=== PATIENT | male | born 1980 | race Caucasian/White ===

== ENCOUNTER 2016-11-29 00:52 | Observation (INO) | payer BC ==
[~2016-11-29] VITALS: Ht 182.9 cm; Wt 122.0 kg
--- NOTE | ~2016-11-29 | OR ---
PATIENT'S NAME: APRIL BENAVIDEZ [facility] AGE: 36 Y [address] ROOM: [address] [address] [place] [facility] [place]: 11[place]29/2016 OR/Procedure Report DISCHARGE DATE: FAMILY PHYSICIAN: PHYSICIAN, UNKNOWN ATTENDING PHYSICIAN: Gabby Robledo SURGEON: Gabby Robledo MD DISTRIBUTION SUPERINTENDENT: DATE OF PROCEDURE: 11/29/2016 PREOPERATIVE DIAGNOSIS: Acute appendicitis. POSTOPERATIVE DIAGNOSIS: Acute appendicitis. PROCEDURE PERFORMED: Laparoscopic appendectomy. ANESTHESIA: General. 14 mL 0.5% Marcaine. SPECIMENS: Appendix with proximal dilatation. ESTIMATED BLOOD LOSS: Minimum. INDICATIONS: The patient is a 36-year-old gentleman with about 40-hour history of abdominal pain, settled in the right lower quadrant suprapubic location. He is found to have a normal white count. He had focal peritoneal findings on exam, and a CAT scan showed dilated appendix with inflammatory changes. It was consistent with appendicitis. DESCRIPTION OF PROCEDURE: After informed consent, the patient was taken to the operating room, and after general endotracheal anesthesia, the patient's abdomen was prepped and draped into a sterile field. A time-out was performed. We identified the patient and planned procedure and the administration of preop antibiotics. The local anesthetic was infiltrated prior to each incision. The first one was made below the umbilicus, carried down to identify the anterior fascia through which a Veress needle was inserted. Pneumoperitoneum created. A 5-mm trocar and laparoscope were inserted. Safe entry was noted. A right upper quadrant 5 mm and a suprapubic 12-mm ports were placed. There was some suppurative exudative process in the right lower quadrant between loops of small bowel and the anterior abdominal wall. They were easily . There was minimal amount of edematous fluid and a lot of the adipose tissue of the ileocecal valve region was not inflamed, and we identified the cecum, identified the anterior tenia, and traced it down to an inflamed retrocecal appendix. We out the small bowel. Again, the fatty tissue was very edematous, but it was not really creeping like inflammatory bowel disease. The small bowel and terminal ilium were soft. We elevated up the appendix and divided the mesial appendix with PATIENT'S NAME: APRIL BENAVIDEZ [facility] AGE: 36 Y [address] ROOM: [address] [place] [address] LOCATION: [facility] [place]: 11/29/2016 OR/Procedure Report DISCHARGE DATE: FAMILY PHYSICIAN: PHYSICIAN, UNKNOWN ATTENDING PHYSICIAN: Gabby Robledo the Endo-THIERRY clip x2. Divided the appendiceal stump at the cecal base with Endo-THIERRY device. The distal appendix was found, looked like fibrotic but only in the proximal one-third looked like almost a little ischemic and dilated. It was placed into an EndoCatch bag and brought out through the 12-mm incision. We irrigated the right lower quadrant until clear. There were no bleeding points. The staple line and the cecum appeared intact. The small bowel again was inspected and no definite changes of Crohn disease. The sigmoid colon across the lower and upper pelvis appeared soft and pliable and normal. We irrigated until clear with 2 L of irrigation fluid. We then terminated the procedure, removed the trocars, and repaired the fascia defect at the 12-mm site with 0 Vicryl and the skin closed with subcuticular 4-0 Vicryl. Steri-Strips and sterile dressings applied. The patient tolerated the procedure well and transferred to the recovery room in stable condition. GABBY ROBLEDO MD WTS/modl /[id number] d: 11/29/16 1345 t: 12/14/16 0903, OPERATIVE SUMMARY
--- NOTE | ~2016-11-29 | HP ---
PATIENT'S NAME: APRIL BENAVIDEZ [facility] AGE: 36 Y [address] ROOM: [id number] [place], [place] [address] [place] [facility] [place]: 11[place]29/[place] History & Physical DISCHARGE DATE: FAMILY PHYSICIAN: PHYSICIAN, UNKNOWN ATTENDING PHYSICIAN: Vaughn Robledo DATE OF SERVICE: CHIEF COMPLAINT: Abdominal pain. REVIEW OF RECORD: April is a pleasant 36-year-old gentleman kindly referred by the [facility] [place] for surgical evaluation and treatment of the diagnosed acute appendicitis. The patient says, Saturday evening about 10:00 p.m., he started having some abdominal pain in the epigastrium. He tried to push through it on Saturday at work but the pain was up to the 6-7 range. He presented to the [facility] and saw Dr. Thomson where he was suspected of having some constipation issues based on plain films per patient report. He went home, tried magnesium citrate and it was to no avail. Last evening, he went to the emergency room at [place] where they evaluated him. He was found to have a lot of abdominal pain mostly in the lower abdomen, right greater than left quadrant. White count was normal but despite that, they appropriately ordered a CT scan for ongoing investigation. The patient's CT scan showed evidence of acute appendicitis. 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 On admission, he had a fever up to 102.5. He felt dry. He said he had lower abdominal pain, still at the range of 7/10 scale. He has had no really nausea or vomiting. He had several small bowel movements after his magnesium citrate but not a normal bowel movement. He has not had any dysuria, no cough. He has had no abdominal trauma. No previous abdominal operations. He has not had any preceding symptoms of chronic diarrhea to suggest inflammatory bowel disease. MEDICATIONS: Eyedrops for recent eye infection. ALLERGIES: AMOXICILLIN A CHILD WITH A RASH SYMPTOM. OPERATIONS: Lumbar discectomy for a bulging disc without fusion. PATIENT'S NAME: APRIL BENAVIDEZ [facility] AGE: 36 Y [address] ROOM: [address] [address] [place] [facility] [place]: 11/29/2016 History & Physical DISCHARGE DATE: FAMILY PHYSICIAN: PHYSICIAN, UNKNOWN ATTENDING PHYSICIAN: Vaughn Robledo SOCIAL HISTORY: Works in the [employer]. Does not smoke or drink. He is , has 3 children. FAMILY HISTORY: Mother had ovarian cancer. REVIEW OF SYSTEMS: He denies any change in his weight. He reports the recent eye infection. Reports having dry lips and is thirsty. Denies any thyroid or diabetic conditions. No history of pulmonary or cardiac abnormality. Denies any swollen joints. He has chronic lower back pain. PHYSICAL EXAMINATION: GENERAL: He was afebrile, 36-year-old gentleman, alert and cooperative to exam. HEENT: Head is normocephalic. Sclerae are nonicteric. There is no matting of the eyes. His mucous membranes are dry. NECK: Supple. There is no adenopathy or thyromegaly to palpation. LUNGS: Clear bilaterally. HEART: Normal sinus rhythm. ABDOMEN: Has normoactive bowel sounds. He does not appear to be distended. He is extremely tender across the lower abdomen with focal peritoneal findings in the right lower quadrant with guarding. EXTREMITIES: He has 2/2 femoral and posterior tibial, dorsalis pedis, and popliteal pulses without peripheral edema. His back is nontender to palpation. IMPRESSION: Acute appendicitis possible rupture. I discussed options of observation versus laparoscopic appendectomy. I explained the procedure, benefits, and risks including, but not limited to abdominal wall hernias, hollow viscous injury, postop abscess, wound infection, cardiac or pulmonary decompensation, and loss of life. I answered the patient and his 's questions, and they agreed to proceed. Thank you very much for allowing me to participate in his care. VAUGHN ROBLEDO MD WTS/modl PATIENT'S NAME: APRIL BENAVIDEZ [facility] AGE: 36 Y [address] ROOM: [address] [address] [place] [facility] [place]: 11/29/2016 History & Physical DISCHARGE DATE: FAMILY PHYSICIAN: GASPER LÓPEZ ATTENDING PHYSICIAN: Vaughn Robledo /[id number] D: 747 T: 901 HISTORY & PHYSICAL
[2016-11-29] MEDS ORDERED: TOBRADEX5 ML IO (02:52)
[2016-11-29] MEDS ORDERED: MULTI-VITAMIN1 EAC1 PO (02:53)
--- NOTE | 2016-11-29 05:56 | NUR ---
Pt admitted around 0240 from [facility] for acute appendicitis. Pt states he started having abdominal pain 2 days ago. Pain kept him up throughout the night. Tried to go to work yesterday but pain was too intense. Went to [facility]. Pt states he got some mag citrate which didn't produce any results. Went home and slept some. Pain kept getting intense so he went to the ER. Ct scan completed in [place] shows appendicitis. Pt takes a multivitamin and some antibiotic eye drops for his right eye infection. Pt only surgery was a back surgery years ago. Pt states no nausea but some belching.
--- NOTE | 2016-11-29 06:02 | NUR ---
Significant Event: Pt alert and oriented. Rested throught remainder of the night. Pt states pain is tolerable. Did receive 3 doses of morphine in [place]. IV fluids going. NPO. Pt max temp was 102.7. Md notified of temp, tylenol given and invanz given. PT has sleep apena and wear CPAP at home. Takes eye drops for recent right ear infection. at bedside. Plan for OR this morning. Follow up:
[2016-11-29] MEDS ORDERED: CPAP INH (06:05)
--- NOTE | 2016-11-29 10:17 | NUR ---
PATIENT RETURNS FROM BATHROOM. REPORTS IV IN LEFT ARM REALLY HURTS. IV ASSESSED, INFILTRATED.
--- NOTE | 2016-11-29 15:45 | NUR ---
Reviewed patient's chart and got an update in morning huddle stating patient was down for surgery. They believed the plan for patient is to discharge to home either this evening or tomorrow depending on if the appendics had ruptured or not. Will wait until patient is out of surgery before knowing discharge plan.
--- NOTE | 2016-11-29 18:07 | NUR ---
Patient is alert and oriented, VSS, on room air. Independent. Advance diet as tolerated. Lap sites x3 with upper R) and upper middle having drainage. No pain, [place] given in PACU. IV's to bilateral AC's saline locked. Post surgical vitals signs completed.
[2016-11-30 04:50] LABS: BASOPHIL % 0.2 %; HEMATOCRIT 41.8 % (37.0-53.0); IMMATURE GRANULOCYTE % 0.3 %; LYMPHOCYTE # 1.5 K/uL (0.8-4.0); LYMPHOCYTE % 16.6 %; MCH 29.4 pg (27.0-34.0); MCHC 33.5 gm/dL (32.0-36.5); MCV 87.8 fl (83.0-98.0); MONOCYTE # 0.9 K/uL (0.0-1.0); MONOCYTE % 10.4 %; NEUTROPHIL # (ANC) 6.6 K/uL (1.4-9.0); NEUTROPHIL % 72.5 %; NRBC % 0 /100WBC (0-0.00); PLATELET COUNT 234 K/uL (150-450); RBC 4.76 M/uL (4.00-6.00); RDW-CV 13.8 % (11.9-14.6)
--- NOTE | 2016-11-30 05:20 | NUR ---
Significant Event: PATIENT RESTED WELL THIS SHIFT. VSS WNL, AFEBRILE ON RA. IV FLUIDS RUNNING @100 ML/HR. UP AT DOUG IN ROOM. THREE STAB WOUND TO LOWER ABDOMEN SOME RED DRAINAGE. PATIENT COMPLAINS OF LOOSE STOOLS X3. EYE GTTS TO R EAR FOR RECENT INFECTION. Follow up:
[2016-11-30] MEDS ORDERED: NORCO 5-325 TA1 EACH PO (12:25)
--- NOTE | 2016-11-30 18:09 | NUR ---
DISCHARGE: Pt. and family were explained discharge instructions, lap appy d/c instructions, new medication: norco, and incision care. No questions or concerns, verbalized understanding of teaching. Left with all belongings and prescriptions. IV removed by primary nurse. Left at 1315, taken to front door by aide and driven home by family.
== END 2016-11-30 13:15 | disposition disaster alternative care site (69) ==
LOC: GMSU 00:52
PROVIDERS: ADMIT Surgery
PROC: 0DTJ4ZZ Resection of Appendix, Percutaneous Endoscopic Approach (ICD-10-PCS; principal; 2016-11-29)
DX: K35.80 Unspecified acute appendicitis (principal); G47.30 Sleep apnea, unspecified; Z99.89 Dependence on other enabling machines and devices; Z98.890 Other specified postprocedural states; Z88.1 Allergy status to other antibiotic agents; Z88.0 Allergy status to penicillin
CPT/HCPCS: G0378; J0694; J1335; J2001; J3010; J7030